=== PATIENT | male | born 1975 | race African-American/Black ===

== ENCOUNTER 2016-06-13 04:41 | Emergency (ER) | payer MEDICAID, OTHER ==
[~2016-06-13] VITALS: Ht 167.6 cm; Wt 77.1 kg
[~2016-06-13 04:41] MED LIST: AMLO5TAB2 PO; HYDR25TAB PO; LOVA40TA PO; OMEP40CA2 PO
[2016-06-13 04:49] VITALS: BP 169/109
--- NOTE | 2016-06-13 15:07 | REP ---
RIGHT FOOT, FOUR VIEWS: HISTORY: Trauma. There is no acute fracture or dislocation. The joint spaces are normal in appearance. IMPRESSION: There is no acute fracture or dislocation. Signed by Rahul Adams MD 06/13/2016 08:50 A
== END 2016-06-13 05:27 | disposition home or self-care (01) ==
LOC: M ED 05:26
DX: S99.921A Unspecified injury of right foot, initial encounter (principal); W22.8XXA Striking against or struck by other objects, initial encounter; Y92.019 Unspecified place in single-family (private) house as the place of occurrence of the external cause; Y93.89 Activity, other specified; Y99.8 Other external cause status; K21.9 Gastro-esophageal reflux disease without esophagitis; F41.9 Anxiety disorder, unspecified; Z79.899 Other long term (current) drug therapy; Z72.0 Tobacco use; R51 Headache; E78.00 Pure hypercholesterolemia, unspecified; I10 Essential (primary) hypertension; F32.9 Major depressive disorder, single episode, unspecified

== ENCOUNTER 2016-07-22 08:57 | Emergency (ER) | payer MEDICAID, OTHER ==
[~2016-07-22] VITALS: Ht 167.6 cm; Wt 77.1 kg
[2016-07-22] MEDS ORDERED: METO1TAB7 (09:08)
[2016-07-22] MEDS ORDERED: PRED20TA PO (10:06)
--- NOTE | 2016-07-22 10:07 | REP ---
LEFT KNEE SERIES: Five views. HISTORY: Left knee pain. FINDINGS: Five views of the left knee demonstrate inferior pole patellar spurring at the patellar tendon insertion. There is fragmented old spurring at the distal patellar insertion at the anterior tibial apophysis consistent with old [place]-Schlatter disease. Bones, joints, and soft tissues are otherwise unremarkable. IMPRESSION: Findings consistent with chronic patellar tendonitis/old [place]-Schlatter disease. No acute bony abnormality. Signed by Han Lara MD 07/22/2016 01:32 P
[2016-07-22 10:20] VITALS: BP 136/78
== END 2016-07-22 10:36 | disposition home or self-care (01) ==
LOC: M ED 09:22
DX: M76.52 Patellar tendinitis, left knee (principal); I10 Essential (primary) hypertension; F41.9 Anxiety disorder, unspecified; F32.9 Major depressive disorder, single episode, unspecified; Z79.899 Other long term (current) drug therapy

== ENCOUNTER 2016-10-08 22:57 | Emergency (ER) | payer OTHER ==
[~2016-10-08] VITALS: Ht 167.6 cm; Wt 77.3 kg
[~2016-10-08 22:57] MED LIST changes: +METO1TAB7; +PRED20TA PO
[2016-10-09] MEDS ORDERED: PERCOCET 5MG/325MG TAB PO ONE (01:15)
[2016-10-09] MEDS ORDERED: NORCOTAB PO (02:07)
[2016-10-09 02:54] VITALS: BP 138/64
--- NOTE | 2016-10-09 10:51 | REP ---
Bilateral shoulder series: Six views. History: Lifting injury. Findings: Three views of the left shoulder demonstrate glenohumeral and acromioclavicular joint osteoarthritis with spurring. No evidence of fracture or subluxation is seen. Three views of the right shoulder also show acromioclavicular and glenohumeral joint osteoarthritic spurring. No fracture or subluxation is seen. Impression: Bilateral shoulder osteoarthritis affecting both the acromioclavicular and glenohumeral joints. No acute bony abnormality. Signed by Han Lara MD 10/09/2016 08:35 A
== END 2016-10-09 03:04 | disposition home or self-care (01) ==
LOC: M ED 22:57
DX: S46.111A Strain of muscle, fascia and tendon of long head of biceps, right arm, initial encounter (principal); X50.0XXA Overexertion from strenuous movement or load, initial encounter; Y92.9 Unspecified place or not applicable; Y93.89 Activity, other specified; Y99.9 Unspecified external cause status; K21.9 Gastro-esophageal reflux disease without esophagitis; I10 Essential (primary) hypertension; M19.011 Primary osteoarthritis, right shoulder; M19.012 Primary osteoarthritis, left shoulder; Z79.899 Other long term (current) drug therapy

== ENCOUNTER → 2017-01-06 | Outpatient (REF) | payer OTHER ==
[~2017-01-06] MED LIST changes: +NORCOTAB PO
== END ==
LOC: M LAB REF 20:50
PROVIDERS: ATTEND Physician Assistant
DX: J02.9 Acute pharyngitis, unspecified (principal)

== ENCOUNTER → 2017-02-25 | Outpatient (REF) | payer OTHER ==
[2017-02-25 16:00] LABS: ALBUMIN 4.7 GM/DL (3.2-5.2); ALBUMIN/GLOBULIN RATIO 1.42 (1.00-1.93); ALKALINE PHOSPHATASE 76 U/L (45-117); ALT/SGPT 61 U/L (12-78); ANION GAP 6 MEQ/L (8-16); AST/SGOT 40 U/L (7-37); BILIRUBIN,TOTAL 0.4 MG/DL (0.2-1.0); BLOOD UREA NITROGEN 22 MG/DL (7-18); CALCIUM LEVEL 9.1 MG/DL (8.5-10.1); CARBON DIOXIDE LEVEL 30 MEQ/L (21-32); CHLORIDE LEVEL 102 MEQ/L (98-107); CHOLESTEROL LEVEL 204 MG/DL (<200); CHOLESTEROL RISK RATIO 3.642 (<5); CREATININE FOR GFR 1.03 MG/DL (0.70-1.30); GLOMERULAR FILTRATION RATE > 60.0 (>60); GLUCOSE, FASTING 103 MG/DL (70-105); HDL CHOLESTEROL 56 MG/DL (>40); LDL CHOLESTEROL 125.6 MG/DL (<100); NON-HDL-C 148 MG/DL; POTASSIUM SERUM 4.1 MEQ/L (3.5-5.1); SODIUM LEVEL 138 MEQ/L (136-145); TRIGLYCERIDES LEVEL 112 MG/DL (<150)
[2017-02-25 16:25] LABS: ESTIMATED AVERAGE GLUCOSE 128 MG/DL (60-110); HEMOGLOBIN A1c 6.1 %
== END ==
LOC: M LAB REF 15:23
DX: I10 Essential (primary) hypertension (principal)

== ENCOUNTER → 2017-07-01 | Outpatient (REF) | payer OTHER | LOC: M LAB REF 09:44 | DX: J02.0 Streptococcal pharyngitis (principal) | CPT/HCPCS: 87070 ==

== ENCOUNTER → 2017-12-03 | Outpatient (REF) | payer OTHER ==
[2017-12-03 14:48] LABS: CHLAMYDIA DNA AMPLIFICATION NEGATIVE (NEGATIVE); GC DNA AMPLIFICATION NEGATIVE (NEGATIVE)
== END ==
LOC: M LAB REF 12:52
DX: Z11.59 Encounter for screening for other viral diseases (principal)
CPT/HCPCS: 87591

== ENCOUNTER → 2017-12-21 | Outpatient (REF) | payer OTHER ==
[2017-12-21 12:46] LABS: ALBUMIN 4.2 GM/DL (3.2-5.2); ALBUMIN/GLOBULIN RATIO 1.14 (1.00-1.93); ALKALINE PHOSPHATASE 76 U/L (45-117); ALT/SGPT 66 U/L (12-78); ANION GAP 11 MEQ/L (8-16); AST/SGOT 53 U/L (7-37); BILIRUBIN,TOTAL 0.3 MG/DL (0.2-1.0); BLOOD UREA NITROGEN 21 MG/DL (7-18); CALCIUM LEVEL 9.1 MG/DL (8.5-10.1); CARBON DIOXIDE LEVEL 25 MEQ/L (21-32); CHLORIDE LEVEL 103 MEQ/L (98-107); CHOLESTEROL LEVEL 251 MG/DL (<200); CHOLESTEROL RISK RATIO 4.826 (<5); CREATININE FOR GFR 0.98 MG/DL (0.70-1.30); GLOMERULAR FILTRATION RATE > 60.0 (>60); GLUCOSE, FASTING 95 MG/DL (70-100); HDL CHOLESTEROL 52 MG/DL (>40); LDL CHOLESTEROL 175 MG/DL (<100); NON-HDL-C 199 MG/DL; POTASSIUM SERUM 3.9 MEQ/L (3.5-5.1); SODIUM LEVEL 139 MEQ/L (136-145); TOTAL PROTEIN 7.9 GM/DL (6.4-8.2); TRIGLYCERIDES LEVEL 122 MG/DL (<150)
== END ==
LOC: M LAB REF 10:40
DX: I10 Essential (primary) hypertension (principal)

== ENCOUNTER → 2017-12-22 | Outpatient (REF) | payer OTHER ==
[2017-12-22 13:34] LABS: ESTIMATED AVERAGE GLUCOSE 126 MG/DL (60-110)
== END ==
LOC: M LAB REF 12:19
DX: I10 Essential (primary) hypertension (principal)
CPT/HCPCS: 83036

== ENCOUNTER → 2018-08-12 | Outpatient (REF) | payer OTHER, MEDICAID ==
[~2018-08-12] MED LIST changes: -AMLO5TAB2 PO; +AMLO5TAB6 PO; +HYDR-2541 PO; +HYDR-3715 PO; -HYDR25TAB PO; -NORCOTAB PO
[2018-08-12 17:58] LABS: ALBUMIN 4.2 GM/DL (3.2-5.2); ALT/SGPT 50 U/L (12-78); BILIRUBIN,TOTAL 0.3 MG/DL (0.2-1.0); BLOOD UREA NITROGEN 18 MG/DL (7-18); CARBON DIOXIDE LEVEL 29 MEQ/L (21-32); CHLORIDE LEVEL 107 MEQ/L (98-107); CHOLESTEROL LEVEL 176 MG/DL (<200); CHOLESTEROL RISK RATIO 3.911 (<5); GLOMERULAR FILTRATION RATE > 60.0 (>60); GLUCOSE, FASTING 94 MG/DL (70-100); HDL CHOLESTEROL 45 MG/DL (>40); LDL CHOLESTEROL 97 MG/DL (<100); NON-HDL-C 131 MG/DL; POTASSIUM SERUM 3.4 MEQ/L (3.5-5.1); SODIUM LEVEL 141 MEQ/L (136-145); TOTAL PROTEIN 7.4 GM/DL (6.4-8.2); TRIGLYCERIDES LEVEL 168 MG/DL (<150)
[2018-08-12 18:14] LABS: HEMOGLOBIN A1c 6.4 %
== END ==
LOC: M LAB REF 16:45
PROVIDERS: ATTEND Nurse Practitioner Adult Health
DX: I10 Essential (primary) hypertension (principal); R73.03 Prediabetes

== ENCOUNTER 2018-12-12 20:58 | Emergency (ER) | payer MEDICAID, OTHER ==
[~2018-12-12] VITALS: Ht 167.6 cm; Wt 75.0 kg
[~2018-12-12 20:58] MED LIST changes: -OMEP40CA2 PO; +OMEP40CA97 PO
[2018-12-13] MEDS ORDERED: ACETAMINOPHEN 325 MG TAB PO ONE (00:30)
[2018-12-13 01:48] VITALS: BP 132/82
--- NOTE | 2018-12-13 07:53 | REP ---
Clinical: Trauma. Fall. Technique: Internal rotation, external rotation, and Y view of the right shoulder. Findings: Cortical irregularity and spurring at the acromioclavicular joint and glenohumeral joint consistent with arthritic changes. No acute fracture or dislocation. Subacromial space is normal. Surrounding soft tissues are normal. Impression: Chronic arthritic changes. No acute fracture or dislocation. Electronically Signed by Aditya Paniagua MD 12/13/2018 07:44 A
--- NOTE | 2018-12-13 07:57 | REP ---
Clinical: Trauma. Fall. . Technique: AP, lateral, bilateral oblique views of the right elbow. Findings: While no acute fracture is identified, lateral view suggests elevation to the anterior fat pad suggesting the possibility of occult injury. Presumptive treatment and clinical correlation is recommended. Impression: Lateral view suggests hemarthrosis and possible occult injury. Presumptive treatment and clinical correlation is recommended. Electronically Signed by Aditya Paniagua MD 12/13/2018 07:48 A
--- NOTE | 2018-12-14 16:24 | ED PDOC ---
Post-Departure Follow-Up derek mcclendon and dr juarez faxed formal report of right elbow film for fu Dominga Rodriguez MD Dec 14, 2018 16:24
== END 2018-12-13 01:50 | disposition home or self-care (01) ==
LOC: M ED 20:58
DX: M25.511 Pain in right shoulder (principal); M25.521 Pain in right elbow; I10 Essential (primary) hypertension; E78.5 Hyperlipidemia, unspecified; K21.9 Gastro-esophageal reflux disease without esophagitis

== ENCOUNTER → 2019-01-19 | Outpatient (REF) | payer OTHER, MEDICAID ==
[2019-01-19 14:26] LABS: ALBUMIN 4.3 GM/DL (3.2-5.2); ALT/SGPT 49 U/L (12-78); BILIRUBIN,TOTAL 0.3 MG/DL (0.2-1.0); BLOOD UREA NITROGEN 24 MG/DL (7-18); CALCIUM LEVEL 9.3 MG/DL (8.5-10.1); CARBON DIOXIDE LEVEL 30 MEQ/L (21-32); CHLORIDE LEVEL 100 MEQ/L (98-107); CHOLESTEROL LEVEL 272 MG/DL (<200); CHOLESTEROL RISK RATIO 4.387 (<5); CREATININE FOR GFR 0.97 MG/DL (0.70-1.30); GLOMERULAR FILTRATION RATE > 60.0 (>60); GLUCOSE, FASTING 100 MG/DL (70-100); HDL CHOLESTEROL 62 MG/DL (>40); LDL CHOLESTEROL 186 MG/DL (<100); NON-HDL-C 210 MG/DL; SODIUM LEVEL 137 MEQ/L (136-145); TRIGLYCERIDES LEVEL 120 MG/DL (<150)
[2019-01-19 14:42] LABS: HEMOGLOBIN A1c 6.1 %
== END ==
LOC: M LAB REF 14:01
PROVIDERS: ATTEND Nurse Practitioner Adult Health
DX: R73.03 Prediabetes (principal); I10 Essential (primary) hypertension

== ENCOUNTER 2019-10-02 04:45 | Emergency (ER) | payer OTHER, MEDICAID ==
[~2019-10-02 04:45] MED LIST changes: +AMLO1TAB24 PO; -AMLO5TAB6 PO
[2019-11-16 11:50] LABS: BASO % 0.3 % (0.0-1.0); EOS # 0.1 10^3/uL (0.0-0.5); HEMATOCRIT 40.2 % (42.0-52.0); HEMOGLOBIN 13.9 g/dl (13.5-17.5); LYMPH # 2.5 10^3/uL (1.5-5.0); LYMPH % 37.5 % (24.0-44.0); MEAN CORPUSCULAR HEMOGLOBIN 31.7 pg (27.0-33.0); MEAN CORPUSCULAR HGB CONC 34.6 g/dl (32.0-36.5); MEAN CORPUSCULAR VOLUME 91.8 fl (80.0-96.0); MONO # 0.6 10^3/uL (0.0-0.8); MONO % 8.8 % (0.0-5.0); NEUTROPHILS # 3.4 10^3/uL (1.5-8.5); NEUTROPHILS % 51.2 % (36.0-66.0); PLATELET COUNT, AUTOMATED 222 10^3/uL (150-450); RED BLOOD COUNT 4.38 10^6/uL (4.30-6.10); WHITE BLOOD COUNT 6.6 10^3/uL (4.0-10.0)
[2019-12-24 16:16] LABS: AMPHETAMINES LEVEL URINE NEGATIVE (NEGATIVE); BARBITURATES URINE NEGATIVE (NEGATIVE); BENZODIAZEPINES URINE NEGATIVE (NEGATIVE); CANNABINOIDS URINE POSITIVE (NEGATIVE); COCAINE METABOLITE URINE NEGATIVE (NEGATIVE); METHADONE URINE NEGATIVE (NEGATIVE); OPIATES URINE NEGATIVE (NEGATIVE); PHENCYCLIDINE URINE NEGATIVE (NEGATIVE)
[2019-12-24 16:16] LABS: ACETAMINOPHEN LEVEL < 2.0 UG/ML (10.0-30.0); ALBUMIN 4.4 GM/DL (3.2-5.2); ALT/SGPT 89 U/L (12-78); BILIRUBIN,DIRECT 0.1 MG/DL (0.0-0.2); BILIRUBIN,TOTAL 0.2 MG/DL (0.2-1.0); BLOOD UREA NITROGEN 15 MG/DL (7-18); CALCIUM LEVEL 8.9 MG/DL (8.5-10.1); CARBON DIOXIDE LEVEL 24 MEQ/L (21-32); CHLORIDE LEVEL 105 MEQ/L (98-107); CREATININE FOR GFR 1.18 MG/DL (0.70-1.30); ETHYL ALCOHOL (ETHANOL) 0.107 % (0.000-0.010); GLOMERULAR FILTRATION RATE > 60.0 (>60); GLUCOSE, FASTING 122 MG/DL (70-100); POTASSIUM SERUM 3.6 MEQ/L (3.5-5.1); SALICYLATE LEVEL < 1.7 MG/DL (5.0-30.0); SODIUM LEVEL 137 MEQ/L (136-145); THYROID STIMULATING HORMONE 0.745 uIU/ML (0.358-3.740); TOTAL PROTEIN 7.9 GM/DL (6.4-8.2)
== END 2019-10-02 06:30 | disposition home or self-care (01) ==
LOC: M ED 04:45
DX: F39 Unspecified mood [affective] disorder (principal); Z63.0 Problems in relationship with spouse or partner; F32.9 Major depressive disorder, single episode, unspecified
CPT/HCPCS: 80048; 80076; 80307; 84443; 85025; 99285; G0480

== ENCOUNTER 2019-11-20 07:17 | Emergency (ER) | payer OTHER ==
[~2019-11-20] VITALS: Ht 167.6 cm; Wt 71.6 kg
[2019-11-20] MEDS ORDERED: AMLO1TAB25 (07:26)
[2019-11-20] MEDS ORDERED: LISI10TA4 (07:26)
[2019-11-20] MEDS ORDERED: OMEP-221 (07:26)
[2019-11-20] MEDS ORDERED: HYDR25TAB (07:26)
[2019-11-20] MEDS ORDERED: AMOX875T2 (07:26)
[2019-11-20] MEDS ORDERED: LOVA20TA2 (07:26)
[2019-11-20] MEDS ORDERED: DOXY-350 PO (07:58)
[2019-11-20] MEDS ORDERED: KETOROLAC 60MG 2ML VIAL IM ONE (08:00)
[2019-11-20 08:18] VITALS: BP 132/87
== END 2019-11-20 08:18 | disposition home or self-care (01) ==
LOC: M ED 07:17
DX: J32.9 Chronic sinusitis, unspecified (principal); E11.9 Type 2 diabetes mellitus without complications; I10 Essential (primary) hypertension; E78.5 Hyperlipidemia, unspecified; Z79.899 Other long term (current) drug therapy
CPT/HCPCS: 96372; 99283; J1885

== ENCOUNTER 2019-12-07 04:37 | Emergency (ER) | payer OTHER ==
[~2019-12-07] VITALS: Ht 167.6 cm; Wt 71.8 kg
[~2019-12-07 04:37] MED LIST changes: +AMLO1TAB25; +AMOX875T2; +DOXY-350 PO; +HYDR25TAB; +LISI10TA4; +LOVA20TA2; +OMEP-221
[2019-12-07] MEDS ORDERED: MELO15TA28 (04:49)
[2019-12-07] MEDS ORDERED: KETOROLAC TROMETHAMINE 10 MG TAB PO ONE (06:30)
--- NOTE | 2019-12-07 07:47 | REPVR ---
PROCEDURE INFORMATION: Exam: US Duplex Left Upper Extremity Veins, Limited Exam date and time: 12/07/2019 7:27 AM Age: 44 years old Clinical indication: Pain; Swelling (edema) of limb; Upper extremity, left; Arm, upper; Additional info: Pain/swelling, HX rotator cuff tear S/P steroid injections 1 month ago TECHNIQUE: Imaging protocol: Real-time Duplex ultrasound of the Left Upper Extremity with 2-D salazar scale, color Doppler flow and spectral waveform analysis with image documentation. Limited exam focused on the left upper extremity veins. COMPARISON: No relevant prior studies available. FINDINGS: Left deep veins: Unremarkable. Axillary and brachial veins are patent throughout without thrombus. Normal Doppler waveforms. Normal compressibility and/or augmentation response. Visualized internal jugular and subclavian veins are patent. Left superficial veins: Visualized cephalic and basilic veins are patent without definite thrombus, but they are small in caliber. The cephalic vein is compressible but no definite blood flow is seen within the cephalic vein on color Doppler imaging. Soft tissues: There is a complex heterogeneous echogenicity collection in the left upper arm at the area of lump, which appears to surround the biceps tendon in the tendon sheath. This measures approximately 3.5 cm transverse and 5.2 cm AP dimension. IMPRESSION: 1. No evidence of deep vein thrombosis. 2. Complex fluid collection in the mid to upper left arm in the region of the biceps muscle and tendon, probably representing fluid in hematoma associated with an injury the biceps tendon. Further assessment with MRI may be helpful. Electronically signed by: Rebecca Yang On 12/07/2019 07:47:15 AM
[2019-12-07 08:19] VITALS: BP 120/77
--- NOTE | 2019-12-09 11:58 | ED PDOC ---
Post-Departure Follow-Up sarah mcclendon and dr nguyen faxed formal report of [facility] for fu Dominga Rodriguez MD Dec 09, 2019 11:58
== END 2019-12-07 08:20 | disposition home or self-care (01) ==
LOC: M ED 04:37
DX: S46.212A Strain of muscle, fascia and tendon of other parts of biceps, left arm, initial encounter (principal); X58.XXXA Exposure to other specified factors, initial encounter; Y92.9 Unspecified place or not applicable; Y99.9 Unspecified external cause status; Y93.9 Activity, unspecified; I10 Essential (primary) hypertension; E78.5 Hyperlipidemia, unspecified; R51.9 Headache, unspecified; F17.200 Nicotine dependence, unspecified, uncomplicated

== ENCOUNTER → 2019-12-13 | Outpatient (REF) | payer OTHER ==
[~2019-12-13] MED LIST changes: +MELO15TA28
[2019-12-13 18:40] LABS: ALBUMIN 4.4 GM/DL (3.2-5.2); ALT/SGPT 40 U/L (12-78); BILIRUBIN,TOTAL 0.4 MG/DL (0.2-1.0); BLOOD UREA NITROGEN 17 MG/DL (7-18); CALCIUM LEVEL 9.7 MG/DL (8.5-10.1); CARBON DIOXIDE LEVEL 26 MEQ/L (21-32); CHLORIDE LEVEL 102 MEQ/L (98-107); CREATININE FOR GFR 0.81 MG/DL (0.70-1.30); GLOMERULAR FILTRATION RATE > 60.0 (>60); GLUCOSE, FASTING 80 MG/DL (70-100); POTASSIUM SERUM 4.2 MEQ/L (3.5-5.1); SODIUM LEVEL 137 MEQ/L (136-145)
== END ==
LOC: M LAB REF 17:31
PROVIDERS: ATTEND Nurse Practitioner Adult Health
DX: I10 Essential (primary) hypertension (principal)

== ENCOUNTER 2020-03-07 08:00 | Emergency (ER) | payer OTHER ==
[~2020-03-07] VITALS: Ht 167.6 cm; Wt 89.0 kg
[~2020-03-07 08:00] MED LIST changes: +HYDR-3490; -HYDR25TAB; +LISI10TA22; -LISI10TA4
--- OUTSIDE RECORDS SUMMARY | 2020-03-07 08:08 | CCD ---
Author Organization Unknown Address [address] [place] [address] Phone [phone] Care Team Providers Care Machine Designer Name Role Phone Elaine Espinal Unavailable Unavailable Allergies Code Code System Name Reaction Severity Status Onset NKDA Notes: SHELLFISH - Reaction: throat swe lls up, itchy, hives | BANANAS - Reaction: shortness of breath Medications Name Status Start Date Stop Date albuterol sulfate HFA 90 mcg/actuation aerosol inhaler Completed 12/13/2019 amlodipine 10 mg tablet Take 1 tablet every day by oral route. Active Not available amoxicillin 875 mg-potassium clavulanate 125 mg tablet Completed 12/13/2019 azithromycin 250 mg tablet Completed 12/12 azithromycin 500 mg tablet Completed 12/12 benzonatate 200 mg capsule Completed 12/12 cefuroxime axetil 500 mg tablet Completed 12/13/2019 cetirizine 10 mg tablet Active Not avai lable doxycycline monohydrate 100 mg capsule Completed 12/13/2019 hydrochlorothiazide 25 mg tablet Take 1 tablet every day by oral route. Active Not available ketotifen 0.025 % (0.035 %) eye drops Active Not available lisinopril 10 mg tablet Take 1 tablet every day by oral route. Active Not available lovastatin 20 mg tablet Take 1 tablet every day by oral route at bedtime. Active Not available meloxicam 15 mg tablet Completed 0 naproxen 500 mg tablet Take 1 tablet twice a day by oral route as needed. Active Not available omeprazole 40 mg capsule,delayed release Active Not available Systane (propylene glycol) 0.4 %-0.3 % eye drops Active Not available Problems Name Status Onset Date Source Nicotine Dependence Active 07/05/2014 History Median Nerve Compression in Forearm Active 07/05/[address] Concept Unknown 07/05/2014 History Onychomycosis Active 11/22/2014 History Pharyngeal Finding Unknown 11/22/2014 History Disorder of Penis Active 04/12/2015 History Pain in Left Knee Active 05/28/2016 History Overweight Active 01/19/2017 History Body Mass Index 25-29 - Overweight Active 01/19/2017 History Prediabetes Active 03/15/2017 History Tobacco User Active 09/27/2017 History Hyperlipidemia Active 08/10/2018 History 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 Past Encounters 12/13/2019 Bilateral Shoulder Joint Pain; Hypertensive Disorder; Hyperlipidemia; Prediabetes; Tobacco User Elaine Espinal, ANP-BC: [address] [place] [address], Ph. Social History Tobacco Smoking Status Current Every Day Smoker Vaccine List None recorded. Plan of Care Patient Instructions Please follow up with orthopedics for yo ur shoulder pain, I will refill the medicine for you one time, but they will need to follow up with you. I have sent refills of your medications to your pharmacy. Please call with any questions or concerns. You have had blood work done today, we will call you with any abnormal results. Reminders Provider Appointments None recorded. Lab None recorded. Referral None recorded. Procedures None recorded. Surgeries None recorded. Imaging None recorded. Vitals 12/13/2019 12:00PM ESTABLISHED [id number] Height Weight BMI Blood Pressure 65 in 189 lbs 31.5 kg/m2 108/76 mm[Hg] 03/03/2019 Height Weight Blood Pressure 65 in 161 lbs 146/93 mm[Hg] 11/14/2018 Height Weight Blood Pressure 65 in 163 lbs 153/89 mm[Hg] 08/10/2018 Height Weight Blood Pressure 65 in 174 lbs 141/86 mm[Hg]"
--- OUTSIDE RECORDS SUMMARY | 2020-03-07 08:09 | CCD ---
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 [id number] S [id number] Problems, Conditions, and Diagnoses Code Display Name Description Problem Type Effective Dates Data Source(s) 386604410 Gastroesophageal reflux disease Gastroesophageal Reflux Disease Problem 11/30/2019 04:21:41 PM EDT [place]ATHY ([facility]) 24696611 Hypertensive disorder Hypertensive Disorder Problem 11/30/2019 04:21:41 PM EDT KATHY ([facility]) 39752281 Depressive disorder Depressive Disorder Problem 1 04:21:41 PM EDT KATHY ([facility]) 63178061 Anxiety Anxiety Problem 11/30/2019 04:21:41 PM ED T KATHY ([facility]) 521.00 Dental caries Dental caries 01/20/2019 09:35:52 AM EST [facility] 735862900 Dental arch length loss secondary to den kaylie caries Dental Arch Length Loss Secondary to Dental Caries Problem 01/20/2019 12:00:00 AM EST Wayne TADEO ([facility]) [id number] Pharyngeal finding Pharyngeal Finding Problem 09/2014 12:00:00 AM EDT - 12/13/2019 12:00:00 AM EDT KATHY ([facility]) 984479355 SNOMED CT Concept SNOMED CT Concept Problem 07/05 12:00:00 AM EDT - 12/13/2019 12:00:00 AM EDT KATHY ([facility]) Surgeries/Procedures Procedure Description Date Indications Data Source(s) ARTHROCENTESIS ASPIR&/INJECTION MAJOR JT/BURSA 020 12:00:00 AM EDT [place] ([facility]) Results ID Date Data Source [id number] 12/13/2019 10:16:10 AM EDT [facility] Current Problems: Dental caries (ICD-521 .00) (NMZ55-E15.9)Hyperlipidemia (ICD- 272.4) (SRC04-B13.5)Tobacco use (ICD-305.1) (JIK85-G24.0)Prediabetes (ICD10- R73.03)History of alcohol abuse (ICD-V11.3) (SDV48-I84.21)BMI 29.0-29.9 (ICD- V85.25) (DGC39-D46.29)Overweight (ICD-278.02) (XGD01-M04.3)Pain in left knee (ICD-719.46) (ASH47-B62.562)Penile pain (ICD-607.89) (RCM39-Q28.89)Onychomycosis (ICD-110.1) (VNQ14-E17.1)PHARYNGITIS (ICD-462) (XZY38-Q43.9)Carpal tunnel syndrome (ICD-354.0) (LHT84-J30.00)Tobacco use disorder (ICD-305.1) (ICD10- F17.200)Routine general medical examination (over 18) (ICD-V70.0) (ICD10- Z00.00)Hypertension (ICD-401.9) (DIQ12-S19)G E R D (ICD-530.81) (ICD10- K21.9)Depression (ICD-311) (FLU82-P07.9)Anxiety Disorder (ICD-300.00) (ICD10- F41.9)Problem list reviewed during this update.Current Medications: LOVASTATIN 20 MG ORAL TABLET (LOVASTATIN) 1 tab by mouth every dayLISINOPRIL 10 MG ORAL TABLET (LISINOPRIL) 1 tab by mouth every day; Route: ORALAMLODIPINE BESYLATE 10 MG ORAL TABLET (AMLODIPINE BESYLATE) 1 tab by mouth every day; Route: ORALOMEPRAZOLE 40 MG ORAL CAPSULE DELAYED RELEASE (OMEPRAZOLE) 1 capsule PO dailyHYDROCHLOROTHIAZIDE 25 MG ORAL TABLET (HYDROCHLOROTHIAZIDE) 1 tablet PO dailyMedication list reviewed during this update.Current Allergies: * BANANAS (Critical)* SHELLFISH (Critical)Allergy list reviewed during this update. Dental Chart: Procedures:Type - CDT Code - Description B - (D2391) Resin-based composite - one surface, posterior on Tooth # 2 on Tooth Surface M (Performed by Irma Wu DDS) Chart Notes:marija (Dec 13 2019 11:05AM): RM (-) per pt. Took temp@ F. Additional PPE requirements due to COVID-19 in the dental setting, N95, surgical mask, hair covering, gown CC: none. HurriCaine (Watermelon) Topical, UR infiltration 1carp. Septocaine (Articaine HCL 4%) X 1:200.000 epi. Operative: #2-M etched and rinsed, futurabond placed and light cured. Voco Grandioso composite A2. Excavated with High Speed and Slow Speed. Occlusion checked and polished. No complications. POI. Given. Assisted by AG . Pt was cooperative. NV:RecallIrma Wu DDS by marija (12/13/2019 11:05 AM): Tooth Notes and Watches:- Tooth 14 Note: open c ontact leading to food impaction. Dr. wu plans on replacing composite with Kristi Zhao by leanna (01/02/2019 10:25 AM): Assessment & Plan Medications:LOVASTATIN 20 MG ORAL TABLETLISINOPRIL 10 MG ORAL TABLETAMLODIPINE BESYLATE 10 MG ORAL TABLETOMEPRAZOLE 40 MG ORAL CAPSULE DELAYED RELEASEHYDROCHLOROTHIAZIDE 25 MG ORAL TABLETAllergies:* BANANAS (Critical)* SHELLFISH (Critical) Name Value Range Interpretation Code Description Data Roro rce(s) Supporting Document(s) ID Date Data Source [id number] 12/13/2019 09:08:51 AM EDT [facility] Patient History Medical History:Anxiety DisorderDepressionG E R DHypertensionTuberculosisADHDMigrainesFamily History:Son- ADDFH- DepressionSocial/Personal History: Smoking Status: current some day smoke rCurrent Problems: Dental caries (ICD-521.00) (YST15-M44.9)Hyperlipidemia (ICD- 272.4) (DWF04-H62.5)Tobacco use (ICD-305.1) (FBZ86-F31.0)Prediabetes (ICD10- R73.03)History of alcohol abuse (ICD-V11.3) (POO98-D56.21)BMI 29.0-29.9 (ICD- V85.25) (WUV02-N89.29)Overweight (ICD-278.02) (YVD03-W89.3)Pain in left knee (ICD-719.46) (TTC02-E97.562)Penile pain (ICD-607.89) (XKT04-A82.89)Onychomycosis (ICD-110.1) (MQZ64-V34.1)PHARYNGITIS (ICD-462) (QCH78-N61.9)Carpal tunnel syndrome (ICD-354.0) (VGS23-Q98.00)Tobacco use disorder (ICD-305.1) (ICD10- F17.200)Routine general medical examination (over 18) (ICD-V70.0) (ICD10- Z00.00)Hypertension (ICD-401.9) (ZMI31-R08)G E R D (ICD-530.81) (ICD10- K21.9)Depression (ICD-311) (AEV39-W62.9)Anxiety Disorder (ICD-300.00) (ICD10- F41.9)Current Medications: LOVASTATIN 20 MG ORAL TABLET (LOVASTATIN) 1 tab by mouth every dayLISINOPRIL 10 MG ORAL TABLET (LISINOPRIL) 1 tab by mouth every day; Route: ORALAMLODIPINE BESYLATE 10 MG ORAL TABLET (AMLODIPINE BESYLATE) 1 tab by mouth every day; Route: ORALOMEPRAZOLE 40 MG ORAL CAPSULE DELAYED RELEASE (OMEPRAZOLE) 1 capsule PO dailyHYDROCHLOROTHIAZIDE 25 MG ORAL TABLET (HYDROCHLOROTHIAZIDE) 1 tablet PO dailyCurrent Allergies: * BANANAS (Critical)* SHELLFISH (Critical)Past Medical History:(reviewed - no changes required) Anxiety DisorderDepressionG E R DHypertensionTuberculosisADHDMigraines Dental Chart: Procedures:Type - CDT Code - Description B - (D0274) Bitewings, 4 radiographic images (Performed by Kristi Cortez) B - (D0120) Periodic oral evaluation - established patient (Performed by Irma Wu DDS) B - (D1110) Prophylaxis, adult (Performed by Kristi Cortez) Treatments:Type - CDT Code - Description T - (D2391) Resin-based composite - one surface, posterior on Tooth # 2 on Tooth Surface M (Performed by Kristi Cortez) Chart Notes:leanna (Dec 13 2019 9:58AM): [facility]- no changescc-Food get stuck in my tooth on upper right sidePatient lost amalgam filling on mesial of # 2. Dr. Wu plans resin on # 2Additional PPE requirements due to COVID-19 in the dental setting, N95, surgical mask, hair covering, gown. Adult prophy - handscaled, polished with rotary cup, flossed 6LDP-tkgejRE-qxfwPukultv reported brushing twice/day, flossing regularly. Patient uses Listerine zero total careTrace marginal biofilm with trace marginal and interproximal calculus in sextant 5Used hand instrumentsTissues- mild bleeding on flossingOHI-brushing am pm, flossing and then using Act mouthwash mouthwashPatient was cooperativeNV- Kristi Wilson by leanna (12/13/2019 9:26 AM): ; marija (Dec 13 2019 11:06AM): [facility](-). CC: lost filling # 3- mesial. Reviewed Xrays. Exam: no caries detected. OCS: WNL, IO/ EO completed, No significant hard findings upon clinical exam.Additional PPE requirements due to COVID-19 in the dental setting, N95, surgical mask, hair covering, gown and shieldPt was cooperative. OHI given Referral: N/A NV:Kristi Kolb by marija (12/13/2019 11:06 AM): Tooth Notes and Watches:- Tooth 14 Note: open contact leading to food impaction. Dr. wu plans on replacing composite with amalgKristi Ruiz by leanna (01/02/2019 10:25 AM): Assessment & Plan Medications:LOVASTATIN 20 MG ORAL TABLETLISINOPRIL 10 MG ORAL TABLETAMLODIPINE BESYLATE 10 MG ORAL TABLETOMEPRAZOLE 40 MG ORAL CAPSULE DELAYED RELEASEHYDROCHLOROTHIAZIDE 25 MG ORAL TABLETAllergies:* BANANAS (Critical)* SHELLFISH (Critical) Name Value Range Interpretation Code Description Data Roro rce(s) Supporting Document(s) ID Date Data Source [id number] 11/07/2019 12:00:00 AM EDT [facility] Patient Name: CHANDA [id number] [facility] Date of : 1975[address] Date of Exam: 11/07/2019BEATRIZ Dick[place] [id number]#: Fax: [phone] EXAM: ARTHROCENTESIS LTSHOULDER-ASPIR/INJ STRD/PAIN MEDSLEFT SHOULDER INJECTION:The procedure was performed by ERNÉ Randall under the generalsupervision of Dr. Jovel.The benefits and risks including, but not limited to pain, infection,bleeding, and anaphylaxis were explained to the patient and informedconsent was obtained.The left glenohumeral joint space was localized using fluoroscopicguidance. The skin was prepped and draped in a sterile fashion. 1%Lidocaine was used as a local anesthetic. Using fluoroscopic guidance, a#25 gauge needle was inserted and advanced into the joint. 0.5 cc ofOmnipaque 300 was injected to verify placement. 6 cc of a solutioncontaining 5 cc of 1% Lidocaine and 1 cc of Kenalog 40 mg was injected intothe joint space. The needle was then removed.The patient tolerated the procedure well and there were no immediatecomplications.Fluoroscopy time was 4 seconds at 3 pulses/second. This is equal to 1seconds continuous fluoroscopy time which is a 75% reduction in radiation.JASMEET Arellano/Uriel bruno for referring KELLY MAE to our office.Electronically Signed - MYRNA JOVEL MD 11/13/19 8:55 Name Value Range Interpretation Code Description Data Roro rce(s) Supporting Document(s) ID Date Data Source [id number] 11/07/2019 12:00:00 AM EDT [facility] Imaging Casey KINNEY Patient Name: CHANDA [id number] [facility] of : 1975[address] Date of Exam: 11/07/2019[place]AT[place] Dick[place] [id number]#: Fax: [phone] EXAM: ARTHROCENTESIS LTSHOULDER-ASPIR/INJ STRD/PAIN MEDSLEFT SHOULDER INJECTION:The procedure was performed by RENÉ Randall under the generalsupervision of Dr. Jovel.The benefits and risks including, but not limited to pain, infection,bleeding, and anaphylaxis were explained to the patient and informedconsent was obtained.The left glenohumeral joint space was localized using fluoroscopicguidance. The skin was prepped and draped in a sterile fashion. 1%Lidocaine was used as a local anesthetic. Using fluoroscopic guidance, a#25 gauge needle was inserted and advanced into the joint. 0.5 cc ofOmnipaque 300 was injected to verify placement. 6 cc of a solutioncontaining 5 cc of 1% Lidocaine and 1 cc of Kenalog 40 mg was injected intothe joint space. The needle was then removed.The patient tolerated the procedure well and there were no immediatecomplications.Fluoroscopy time was 4 seconds at 3 pulses/second. This is equal to 1seconds continuous fluoroscopy time which is a 75% reduction in radiation.JASMEET Arellano/Uriel you for referring KELLY MAE to our office.Electronically Signed - MYRNA JOVEL MD 11/13/19 8:55 Name Value Range Interpretation Code Description Data Roro rce(s) Supporting Document(s) ID Date Data Source [id number] 11/07/2019 12:00:00 AM EDT [facility] Imaging Casey KINNEY Patient Name: [id number] [facility] Date of : 1975[address] Date of Exam: 11/07/2019BEATRIZ Dickerson [id number]#: Fax: [phone] EXAM: ARTHROCENTESIS RTSHLDR-ASPIR/INJ STEROID/PAIN MEDSRIGHT SHOULDER INJECTION:The procedure was performed by RENÉ Randall under the generalsupervision of Dr. Jovel.The benefits and risks including, but not limited to pain, infection,bleeding, and anaphylaxis were explained to the patient and informedconsent was obtained.The right glenohumeral joint space was localized using fluoroscopicguidance. The skin was prepped and draped in a sterile fashion. 1%Lidocaine was used as a local anesthetic. Using fluoroscopic guidance, a#25 gauge needle was inserted and advanced into the joint. 0.5 cc ofOmnipaque 300 was injected to verify placement. 6 cc of a solutioncontaining 5 cc of 1% Lidocaine and 1 cc of Kenalog 40 mg was injected intothe joint space. The needle was then removed.The patient tolerated the procedure well and there were no immediatecomplications.Fluoroscopy time was 4 seconds at 3 pulses/second. This is equal to 1seconds continuous fluoroscopy time which is a 75% reduction in radiation.JASMEET Arellano/Uriel you for referring KELLY MAE to our office.Electronically Signed - MYRNA JOVEL MD 11/13/19 8:55 Name Value Range Interpretation Code Description Data Roro rce(s) Supporting Document(s) ID Date Data Source [id number] 11/07/2019 12:00:00 AM EDT [facility] Casey KINNEY Patient Name: [id number] [facility] Date of : 1975[facility] [address] Date [facility]: [facility] [id number]#: Fax: [phone] EXAM: ARTHROCENTESIS RTSHLDR-ASPIR/INJ STEROID/PAIN MEDSRIGHT SHOULDER INJECTION:The procedure was performed by RENÉ Randall under the generalsupervision of Dr. Jovel.The benefits and risks including, but not limited to pain, infection,bleeding, and anaphylaxis were explained to the patient and informedconsent was obtained.The right glenohumeral joint space was localized using fluoroscopicguidance. The skin was prepped and draped in a sterile fashion. 1%Lidocaine was used as a local anesthetic. Using fluoroscopic guidance, a#25 gauge needle was inserted and advanced into the joint. 0.5 cc ofOmnipaque 300 was injected to verify placement. 6 cc of a solutioncontaining 5 cc of 1% Lidocaine and 1 cc of Kenalog 40 mg was injected intothe joint space. The needle was then removed.The patient tolerated the procedure well and there were no immediatecomplications.Fluoroscopy time was 4 seconds at 3 pulses/second. This is equal to 1seconds continuous fluoroscopy time which is a 75% reduction in radiation.JASMEET Arellano/Uriel you for referring KELLY MAE to our office.Electronically Signed - MYRNA JOVEL MD 11/13/19 8:55 Name Value Range Interpretation Code Description Data Roro rce(s) Supporting Document(s) ID Date Data Source [id number] 07/03/2019 12:00:00 AM EDT [facility] Imaging Casey KINNEY Patient Name: [id number] [facility] Date of : 1975[address] Date [facility] Exam: [facility]2019[facility] [id number]#: Fax: [phone] EXAM: ARTHROCENTESIS RTSHLDR-ASPIR/INJ STEROID/PAIN MEDSCLINICAL INFORMATION: Strain of muscle/tendon of the rotator cuff.The procedure was performed by Gabi Adame [facility], under thepersonal supervision of Dr. Ar oliveira.The benefits and risks including but not limited to pain, infection,bleeding and anaphylaxis were explained to the patient as well as thepotential therapeutic benefits of the procedure and the possibility of anunsuccessful procedure, and an informed consent was obtained. Directlyprior to the start of the procedure, a formal time-out was completed.The right glenohumeral joint space was localized using fluoroscopicguidance. The skin was prepped and draped in a sterile fashion.Approximately 5 cc of 1% Lidocaine 10 mg/ml was used as a local anesthetic. Using fluoroscopic guidance, a #22 gauge s emma needle was inserted andadvanced into the right glenohumeral joint space. Approximately 1 cc ofOmnipaque 300 mg/ml was injected to verify placement. A 6 cc solutioncontaining 5 cc of 1% Bickqgwij11 mg/ml and 1 cc of Kenalog 40 mg/ml wasinjected into the joint space. The needle was then removed.The patient tolerated the procedure well and there were no immediatecomplications.Fluoroscopic images are performed with last image hold technology. Theseimages require no additional radiation to acquire.Fluoroscopy time was 9 seconds at 3 pulses/second. This is equal to 2.25seconds continuous fluoroscopy time which is a 75% reduction in radiation.Dictated by RENÉ Choudhary, with Dr. Fenton.SHAHAB Varner/Uriel bruno for referring KELLY MAE to our office.Electronically Signed - FREEMAN FENTON DO 07/03/19 16:55 Name Value Range Interpretation Code Description Data Roro rce(s) Supporting Document(s) ID Date Data Source [id number] 07/03/2019 12:00:00 AM EDT [facility] Imaging Casey KINNEY Patient Name: [id number] [facility] Date of : 1975[facility] [address] Date of Exam: 07/03/2019[place], [place] [id number]#: Fax: [phone] EXAM: ARTHROCENTESIS RTSHLDR-ASPIR/INJ STEROID/PAIN MEDSCLINICAL INFORMATION: Strain of muscle/tendon of the rotator cuff.The procedure was performed by RENÉ Ridley, under thepersonal supervision of Dr. Ar oliveira.The benefits and risks including but not limited to pain, infection,bleeding and anaphylaxis were explained to the patient as well as thepotential therapeutic benefits of the procedure and the possibility of anunsuccessful procedure, and an informed consent was obtained. Directlyprior to the start of the procedure, a formal time-out was completed.The right glenohumeral joint space was localized using fluoroscopicguidance. The skin was prepped and draped in a sterile fashion.Approximately 5 cc of 1% Lidocaine 10 mg/ml was used as a local anesthetic. Using fluoroscopic guidance, a #22 gauge s emma needle was inserted andadvanced into the right glenohumeral joint space. Approximately 1 cc ofOmnipaque 300 mg/ml was injected to verify placement. A 6 cc solutioncontaining 5 cc of 1% Gkltrmlnu06 mg/ml and 1 cc of Kenalog 40 mg/ml wasinjected into the joint space. The needle was then removed.The patient tolerated the procedure well and there were no immediatecomplications.Fluoroscopic images are performed with last image hold technology. Theseimages require no additional radiation to acquire.Fluoroscopy time was 9 seconds at 3 pulses/second. This is equal to 2.25seconds continuous fluoroscopy time which is a 75% reduction in radiation.Dictated by Gabi Benson, [facility], with Dr. Fenton.SHAHAB Varner/Uriel you for referring KELLY MAE to our office.Electronically Signed - FREEMAN FENTON DO 07/03/19 16:55 Name Value Range Interpretation Code Description Data Roro e(s) Supporting Document(s) ID Date Data Source [id number] 03/03/2019 01:39:22 PM [facility] Measurements & CalculationsHeight: 65 inches (5 ft. 5 in.) 165.10 cm Weight: 161 pounds 73.18 kg Body Mass Index (BMI): 26.89BMI Interpretation: OverweightBody Surface Area (BSA): 1.81Weight Management Education Done (Nutrition/Physical Activity)Vital SignsTemperature: 98.5FPulse Rate: 91 beats/minuteRespiratory Rate: 17 respirations/minuteBlood Pressure: 146/93 O2 Saturation: 98% Vital Signs performed by: Su Nesbitt MA, March 03, 2019 1:46 PMInitial Intake Information from: patientRoom #: 12Infectious Disease- Travel Have you or your sexual partner travelled outside of the country recently? NoSmoking, Tobacco or Smoke Exposure StatusSmoke Status: current some day smokerTobacco Use: YesAdv to Quit: YesPassive Smoke Exposure: YesHealthcare HistorySince your last office visit...Have you been admitted to the hospital? NoHave you been to an emergency room (ER) or urgent care clinic? NoHave you seen another healthcare provider? NoHave you seen a dentist? Yes - NCFHCIntake performed by: Su Nesbitt MA, March 03, 2019 1:42 PMRate Your HealthIn general, would you say your health is? GoodPain AssessmentAre you currently having any pain which... You would like your provider to address? No Affects your activity level? NoDepression Screening - PHQ-2Over the last two weeks, have you... Had little interest or pleasure in doing things? Not at all Been feeling down, depressed, or hopeless? Not at all PHQ-2 Score: 0Anxiety Screening - ELIAN-2Over the last two weeks, have you been... Feeling nervous, anxious, or on edge? Not at all Unable to stop or control worrying? Not at all ELIAN-2 Score: 0Screening, Brief Intervention, & Referral to Treatment (SBIRT)Pre-Screening Questions How many times have you have 5 or more drinks in a day? 0How many times have you used an illegal drug or used a prescription medication for a non-medical reason? 0Performed by: Janette Ash MA 2019 1:42 PMPatient History Medical History:Anxiety DisorderDepressionG E R DHypertensionTuberculosisADHDMigrainesSurgical History:UnremarkableFamily History:Son- ADDFH- DepressionSocial/Personal History:Passive smoke exposure - yesAlcohol Use - yesDrug Use - noHIV/High Risk - noRegular Exercise - yesSmoking History:Patient currently smokes every day.Marital Status- Smoking Status: current some day smokerAdvised to Quit/Tobacco Education: YesChief ComplaintBP- LabsHistory of Present Illness (HPI)Telemedicine visit with patient's location at [facility] and provider's location at offsite office. Additional person(s)participating in the visit: n/a. Patient here today for 4 month follow up and med refills. He states that he has been compliant with his BP meds. He he hasn't taken his BP medication today. He also admits to smoking cigars a few days per week, he is not ready to quit. He has been exercising more lately. Has been missing his doses of his lovastatin, is now setting an alarm to take it the past month.HPI performed by: Elaine WHITE, March 03, 2019 1:47 PMTransitions of Care InboundProblem ReviewProblem List was reviewed and/or updated during this visit.Medication Reconciliation & ReviewMedication List was reviewed and/or updated during this visit, including review of any ixga-fzp-vowzocq medications, herbal therapies, and/or supplements.Allergy ReviewAllergy List was reviewed and/or updated during this visit.Adult Preventive CareProvider Calculated and Reviewed all Clinical Protocols for patient today. Screening Tobacco Screening: Smoking Status: current some day smoker (03/03/2019) Advised to Quit: Yes (03/03/2019)Labs/Meds/Other Counseling-Nutrition and Physical Activity:BMI Interpretation: Overweight (03/03/2019) Counseling: Done (03/03/2019) Physical Activity: Done (03/03/2019)Review of Systems General: Denies chills, fever, headache, feeling ill, sweats, night sweats. Cardiovascular: Denies chest pain, palpitations, feeling faint. Respiratory: Denies cough, difficulty breathing, shortness of breath, wheezing. Psychiatric: Denies depression, anxiety. Physical ExamGeneral Appearance: well nourished, well hydrated, no acute distressEyes, External: conjunctivae and lids normal, EOMIHearing: grossly intactRespiratory, Effort: no intercostal retractions or use of accessory musclesGait & Station: normalOrientation: oriented to time, place, and personMood & Affect: no depression, anxiety, or agitationJudgment & Insight: poorMemory: intact for recent and remote eventsCare Management Plan Transitions of CareInboundRate Your HealthIn general, would you say your health is? GoodAssessment & Plan Problems:Assessed:Tobacco use (ICD-305.1) (UCO41-Z16.0) Assessment: Instructions: There are many health risks that come with continued smoking. Please try to quit smoking KOKO and pick a quit date within the next 30 days. We can help you quit if you are ready.Hyperlipidemia (ICD- 272.4) (WMD69-X41.5) Assessment: Instructions: You can take the Lovastatin during the day if it helps your remember to take it. It's more important that you take it everyday than to try rememeber to take it at night.Hypertension ( ICD-401.9) (RRW58-A03) Assessment: Instructions: Your BP is too high today, go home and take your medications.You are at risk for strokes and heart attacks with uncontrolled high blood pressure. Please go to the ER or call 911 with any chest pain, severe headaches, vision changes, weakness, or shortness of breath.Prediabetes (WCY10-M59.03) Assessment: Instructions: Continue to cut our sugar and carbs from your diet to help ensure you don't develop diabetes.Hyperlipidemia (ICD-272.4) (TJP32-L17.5) Assessment: Was forgetting to take his med at night. Advised to take it during the day with his other meds. LDL increased this visit, will recheck in 3 months.Tobacco use (ICD-305.1) (ZGO96-I18.0) Assessment: Smoking cessation counseling done with patient today.Prediabetes (PTE22-N72.03) Assessment: Improved a1c, Advised patient on lifestyle changes, including a healthy diet and regular exercise. Patient understands and will start to make these changes. May consider starting medications if changes do not bring about improvements in lab values/blood pressure/weight.Hypertension (ICD-401.9) (KRJ72-D48) Assessment: Not at goal today, hasn't taken his meds today yet. Advised that he go home and taken them KOKO. Discussed s/sx of prolonged HTN and risks for CVA and DE. Advised patient to go to the ER or call 911 for any SAENZ, CP, vision changes, weakness, or SOB.Patient Instructions/Care Plan: Tobacco use: There are many health risks that come with continued smoking. Please try to quit smoking KOKO and pick a quit date within the next 30 days. We can help you quit if you are ready.Hyper lipidemia: You can take the Lovastatin during the day if it helps your remember to take it. It's more important that you take it everyday than to try rememeber to take it at night.Hypertension: Your BP is too high today, go home and take your medications.You are at risk for strokes and heart attacks with uncontrolled high blood pressure. Please go to the ER or call 911 with any chest pain, severe headaches, vision changes, weakness, or shortness of breath.Prediabetes: Continue to cut our sugar and carbs from your diet to help ensure you don't develop diabetes. Plan developed in collaboration with patient and/or familyMedications:LOVASTATIN 20 MG ORAL TABLETLISINOPRIL 10 MG ORAL TABLETAMLODIPINE BESYLATE 10 MG ORAL TABLETOMEPRAZOLE 40 MG ORAL CAPSULE DELAYED RELEASEHYDROCHLOROTHIAZIDE 25 MG ORAL TABLETMedication Changes:Refilled:LISINOPRIL 10 MG ORAL TABLET-1 tab by mouth every day Qty: 30[Tablet] Refills: 2 Method: ElectronicAMLODIPINE BESYLATE 10 MG ORAL TABLET-1 tab by mouth every day Qty: 30[Tablet] Refills: 2 Method: ElectronicOMEPRAZOLE 40 MG ORAL CAPSULE DELAYED RELEASE-1 capsule PO daily Qty: 30[Capsule] Refills: 2 Method: ElectronicLOVASTATIN 20 MG ORAL TABLET-1 tab by mouth every day Qty: 30[Tablet] Refills: 2 Method: ElectronicHYDROCHLOROTHIAZIDE 25 MG ORAL TABLET-1 tablet PO daily Qty: 30[Tablet] Refills: 2 Method: ElectronicChanged: To: LOVASTATIN 20 MG ORAL TABLET-1 tab by mouth every day Qty: 30[Tablet] Refills: 2Allergies:* BANANAS (Critical)* SHELLFISH (Critical)Orders:COMP METABOLIC PANEL [CPT-76156] HgBA1c [CPT-83625] LIPID PANEL [CPT-43828] Office Visit - Established, Level 3 [CPT- 73019AW] Follow-Up Return to clinic: 3 months for follow up Clinical Visit Summary CompletedMedications:HYDROCHLOROTHIAZIDE 25 MG ORAL TABLET (HYDROCHLOROTHIAZIDE) 1 tablet PO daily #30[Tablet] x 2 Entered and Authorized by: Elaine WHITE Method used: Electronically to [facility] (retail) [address] [place] [address] Indications: HYPERTENSION RxID: [id number] 20 MG ORAL TABLET (LOVASTATIN) 1 tab by mouth every day #30[Tablet] x 2 Entered and Authorized by: Elaine WHITE Method used: Electronically to [facility] (retail) [address] [place] [address] Note to Pharmacy: Route: ORAL; RxID: [id number] 40 MG ORAL CAPSULE DELAYED RELEASE (OMEPRAZOLE) 1 capsule PO daily #30[Capsule] x 2 Entered and Authorized by: Elaine WHITE Method used: Electronically to [facility] (retail) [address] [place] [address] Indications: G E R D RxID: [id number] BESYLATE 10 MG ORAL TABLET (AMLODIPINE BESYLATE) 1 tab by mouth every day #30[Tablet] x 2 Route:ORAL Entered and Authorized by: Elaine WHITE Method used: Electronically to [facility] (retail) [address] [place] [address] Note to Pharmacy: Route: ORAL; RxID: [id number] 10 MG ORAL TABLET (LISINOPRIL) 1 tab by mouth every day #30[Tablet] x 2 Route:ORAL Entered and Authorized by: Elaine WHITE Method used: Electronically to [facility] (retail) [address] [place] [address] Note to Pharmacy: Route: ORAL; RxID: [id number] Administered/Entered:Vaccination Group: H1N1 InfluenzaSeries: 1 NOT GIVENVaccination: Influenza A (H1N1) Monoval PF Intramuscular SuspensionReason Not Given: Patient decisionEntered Date: 03/03/2019 12:00 AMComments: pt refusedEntered by: Su Nesbitt MA Name Value Range Interpretation Code Description Data Roro rce(s) Supporting Document(s) ID Date Data Source [id number] 02/27/2019 09:01:53 AM [facility] Current Problems: Dental caries (ICD-521 .00) (VGM94-V71.9)Hyperlipidemia (ICD- 272.4) (SDS45-K71.5)Tobacco use (ICD-305.1) (ZVQ17-G91.0)Prediabetes (ICD10- R73.03)History of alcohol abuse (ICD-V11.3) (BLY62-X08.21)BMI 29.0-29.9 (ICD- V85.25) (TLC49-N29.29)Overweight (ICD-278.02) (LYH56-U93.3)Pain in left knee (ICD-719.46) (FXI13-X08.562)Penile pain (ICD-607.89) (OCS02-S44.89)Onychomycosis (ICD-110.1) (AVH74-N17.1)PHARYNGITIS (ICD-462) (NMB63-I08.9)Carpal tunnel syndrome (ICD-354.0) (PDF66-W47.00)Tobacco use disorder (ICD-305.1) (ICD10- F17.200)Routine general medical examination (over 18) (ICD-V70.0) (ICD10- Z00.00)Hypertension (ICD-401.9) (RWE92-N41)G E R D (ICD-530.81) (ICD10- K21.9)Depression (ICD-311) (CUP29-J13.9)Anxiety Disorder (ICD-300.00) (ICD10- F41.9)Current Medications: LOVASTATIN 20 MG ORAL TABLET (LOVASTATIN) 1 tabn by mouth every night at bedtime; Route: ORALLISINOPRIL 10 MG ORAL TABLET (LISINOPRIL) 1 tab by mouth every day; Route: ORALAMLODIPINE BESYLATE 10 MG ORAL TABLET (AMLODIPINE BESYLATE) 1 tab by mouth every day; Route: ORALOMEPRAZOLE 40 MG ORAL CAPSULE DELAYED RELEASE (OMEPRAZOLE) 1 capsule PO dailyHYDROCHLOROTHIAZIDE 25 MG ORAL TABLET (HYDROCHLOROTHIAZIDE) 1 tablet PO dailyCurrent Allergies: * BANANAS (Critical)* SHELLFISH (Critical) Dental Chart: Procedures:Type - CDT Code - Description B - (D2140) Amalgam-one surface, primary or permanent on Tooth # 2 on Tooth Surface M (Performed by Irma Wu DDS) Chart Notes:marija (Feb 27 2019 9:41AM): [facility] (N/C Per Pt.). CC: none. Hurricaine Watermelon Topical, UR Infiltration 1.5 carp Lidocaine HCL 2% with 1:100,000 epi. Operative: #2-M Gluma and Amalgam. Excavated with High Speed, Slow Speed and Spoon. Occlusion checked. No complications. POI given to pt. Assisted by CARLOS. Pt was cooperative. NV: Recall Irma Wu DDS by marija (02/27/2019 9:41 AM): Tooth Notes and Watches:- Tooth 14 Note: open contact leading to food impaction. Dr. wu plans on replacing composite with amalgKristi Ruiz by leanna (01/02/2019 10:25 AM): Assessment & Plan Medications:LOVASTATIN 20 MG ORAL TABLETLISINOPRIL 10 MG ORAL TABLETAMLODIPINE BESYLATE 10 MG ORAL TABLETOMEPRAZOLE 40 MG ORAL CAPSULE DELAYED RELEASEHYDROCHLOROTHIAZIDE 25 MG ORAL TABLETAllergies:* BANANAS (Critical)* SHELLFISH (Critical) Name Value Range Interpretation Code Description Data Roro rce(s) Supporting Document(s) ID Date Data Source [id number] 01/26/2019 12:00:00 AM EST [facility] Tam Azevedo Patient Name: CHANDA [id number] [facility] Date of : 1975[address] Date of Exam: 01/26/2019BEATRIZ Dikcerson [id number]#: Fax: [phone] EXAM: MRI SHOULDER WITH CONTRASTCLINICAL INFORMATION: Pain.Attempted pre and post contrast 3T MRI of the right shoulder was performedutilizing various sequences. Gadolinium utilized: 15 cc of ProHance. Theexamination was ordered with contrast only. The patient could not toleratethe exam and the exam is incomplete due to extreme claustrophobia. Onlythree axial data sets were obtained. Standard T1 and pre and postGadolinium enhanced fat suppressed T1.There is enhancement in the infraspinatus and teres minor musculatureparticularly the infraspinatus muscle and musculotendinous region. This isdifficult to evaluate due to the limitations of the exam. There is noevidence of a glenohumeral joint effusion. The biceps tendon resideswithin the bicipital groove. There are no enhancing marrow signalabnormalities.IMPRE SSION:There is evidence of rotator cuff musculotendinous edema and I cannot ruleout the possibility of an infraspinatus tendon tear.Exam limitations as described above. Complete examination is recommendedfor further evaluation.Accredited by the [employer] in [place].Freeman Fenton, SHAHAB/Uriel you for referring KELLY MAE to our office.Electronically Signed - FREEMAN FENTON DO 01/26/19 15:20 Name Value Range Interpretation Code Description Data Roro rce(s) Supporting Document(s) ID Date Data Source [id number] 01/20/2019 09:03:18 AM [facility] Current Problems: Dental caries (ICD-521 .00) (NZP93-R34.9)Hyperlipidemia (ICD- 272.4) (DUO55-G22.5)Tobacco use (ICD-305.1) (QPZ75-U43.0)Prediabetes (ICD10- R73.03)History of alcohol abuse (ICD-V11.3) (NFA01-A44.21)BMI 29.0-29.9 (ICD- V85.25) (PBZ12-E83.29)Overweight (ICD-278.02) (ITJ35-F31.3)Pain in left knee (ICD-719.46) (UKI12-H19.562)Penile pain (ICD-607.89) (ZWD58-J84.89)Onychomycosis (ICD-110.1) (PRZ62-J45.1)PHARYNGITIS (ICD-462) (UTQ95-E43.9)Carpal tunnel syndrome (ICD-354.0) (TNF22-I85.00)Tobacco use disorder (ICD-305.1) (ICD10- F17.200)Routine general medical examination (over 18) (ICD-V70.0) (ICD10- Z00.00)Hypertension (ICD-401.9) (UBK99-D00)G E R D (ICD-530.81) (ICD10- K21.9)Depression (ICD-311) (ZFN69-W54.9)Anxiety Disorder (ICD-300.00) (ICD10- F41.9)Current Medications: LOVASTATIN 20 MG ORAL TABLET (LOVASTATIN) 1 tabn by mouth every night at bedtime; Route: ORALLISINOPRIL 10 MG ORAL TABLET (LISINOPRIL) 1 tab by mouth every day; Route: ORALAMLODIPINE BESYLATE 10 MG ORAL TABLET (AMLODIPINE BESYLATE) 1 tab by mouth every day; Route: ORALOMEPRAZOLE 40 MG ORAL CAPSULE DELAYED RELEASE (OMEPRAZOLE) 1 capsule PO dailyHYDROCHLOROTHIAZIDE 25 MG ORAL TABLET (HYDROCHLOROTHIAZIDE) 1 tablet PO dailyCurrent Allergies: * BANANAS (Critical)* SHELLFISH (Critical) Dental Chart: Procedures:Type - CDT Code - Description B - (D2150) Amalgam, 2 surfaces, primary or permanent on Tooth # 14 on Tooth Surface MO (Performed by Irma Wu DDS) Chart Notes:marija (Jan 20 2019 9:35AM): [facility] (N/C Per Pt.) CC: none. HurriCaine (Watermelon) Topical, U Infiltration 1 1/2 carp. Septocaine (Articaine HCL 4%) X 1:200.000 epi. Operative: #14-MO Gluma and amalgam. Excavated with High Speed, Slow Speed and Spoon. Occlusion checked.No complications. POI given to pt. Assisted by CARLOS. Pt was cooperative. Pt. is aware we are replacing filling and not guarantee contact will improve. . NV: Irma Frias DDS by marija (01/20/2019 9:35 AM): Tooth Notes and Watches:- Tooth 14 Note: open contact leading to food impaction. Dr. wu plans on replacing composite with sharlenealgKristi Ruiz by leanna (01/02/2019 10:25 AM): Assessment & Plan Problems:Added: Dental caries (ICD-521.00) (ICD10- K02.9)Medications:LOVASTATIN 20 MG ORAL TABLETLISINOPRIL 10 MG ORAL TABLETAMLODIPINE BESYLATE 10 MG ORAL TABLETOMEPRAZOLE 40 MG ORAL CAPSULE DELAYED RELEASEHYDROCHLOROTHIAZIDE 25 MG ORAL TABLETAllergies:* BANANAS (Critical)* SHELLFISH (Critical) Name Value Range Interpretation Code Description Data Roro rce(s) Supporting Document(s) ID Date Data Source [id number] 01/19/2019 10:25:40 AM EST [facility] In-House Blood TestsDate/Time Colle cted: January 19, 2019 10:29 AMTest Result Reference Range Normal ValueComments: blood draw done in offcie done in the left ac tolerated well Cedrick Moreno PARSONS, January 19, 2019 10:29 AMAssessment & Plan Orders:[id number] Vst-Est Level I [CPT-17706] 11813 - Venipuncture [CPT-20898] Name Value Range Interpretation Code Description Data Roro rce(s) Supporting Document(s) ID Date Data Source [id number] 01/19/2019 09:55:00 AM [facility] Name Value Range Interpretation Code Description Data Roro rce(s) Supporting Document(s) HGBA1C 6.1 % N [facility] ID Date Data Source [id number] 01/19/2019 09:55:00 AM EST [facility] Name Value Range Interpretation Code Description Data Roro rce(s) Supporting Document(s) BG FASTING 100 mg/dL 70-100 [facility] Procedure Vital Signs ID Date Data Source UNK Name Value Range Interpretation Code Description Data Source(s) Body weight 3024 [oz_av] 3024 [oz_av] KATHY ([facility]) Systolic blood pressure 108 mm[Hg] 108 mm[Hg] A THENA ([facility]) Body mass index (BMI) [Ratio] 31.5 kg/m2 31.5 k g/m2 KATHY ([facility]) Body height 65 [in_i] 65 [in_i] KATHY ([facility]) Diastolic blood pressure 76 mm[Hg] 76 mm[Hg] KATHY ([facility]) Body mass index (BMI) [Ratio] 27.5 kg/m2 27.5 k g/m2 MEDENT ([facility]) Body weight 165.00 [lb_av] 165.00 [lb_av] MEDEN T ([facility]) Body height 65 [in_i] 65 [in_i] MEDENT ([facility] ) 5'5" Body temperature 98.7 [degF] 98.7 [degF] MEDENT ([facility] ) Body weight 2576 [oz_av] 2576 [oz_av] KATHY ([facility]) Systolic blood pressure 146 mm[Hg] 146 mm[Hg] Wayne THENWayne ([facility]) Body height 65 [in_i] 65 [in_i] KATHY ([facility]) Diastolic blood pressure 93 mm[Hg] 93 mm[Hg] KATHY ([facility]) Patient Treatment Plan of Care Planned Activity Planned Date Details Description Data Source (s) meloxicam 15 MG Oral Tablet KATHY ([facility]) Doxycycline Monohydrate 100 MG Oral Capsule KATHY ([facility]) Cefuroxime 500 MG Oral Tablet KATHY ([facility]) [facility] Amoxicillin 875 MG / Clavulanate 125 [facility] albuterol sulfate HFA 90 mcg/actuation aerosol inhaler KATHY ([facility])
--- NOTE | 2020-03-07 08:31 | REP ---
INDICATION: limited rom COMPARISON: None. TECHNIQUE: Internal rotation, external rotation, and Y view. FINDINGS: Cortical irregularity and spurring at the acromioclavicular joint is appreciated along with subtle blunting to the calcified glenoid rim and minimal spurring of the humeral head. No periarticular calcifications or loose bodies are identified. No acute fracture or dislocation. Subacromial space is normal. IMPRESSION: Mild arthritic degenerative changes. <Electronically signed by Aditya Paniagua > 03/07/20 [id number]
[2020-03-07] MEDS ORDERED: IBUPROFEN 800 MG TAB PO ONE (08:45)
[2020-03-07 08:55] VITALS: BP 138/87
== END 2020-03-07 08:57 | disposition home or self-care (01) ==
LOC: M ED 08:00
DX: S46.912A Strain of unspecified muscle, fascia and tendon at shoulder and upper arm level, left arm, initial encounter (principal); S43.402A Unspecified sprain of left shoulder joint, initial encounter; X50.0XXA Overexertion from strenuous movement or load, initial encounter; Y92.019 Unspecified place in single-family (private) house as the place of occurrence of the external cause; Y93.89 Activity, other specified; Y99.9 Unspecified external cause status; M19.012 Primary osteoarthritis, left shoulder; I10 Essential (primary) hypertension; E78.5 Hyperlipidemia, unspecified; K21.9 Gastro-esophageal reflux disease without esophagitis; F33.9 Major depressive disorder, recurrent, unspecified; F41.9 Anxiety disorder, unspecified; F17.200 Nicotine dependence, unspecified, uncomplicated; F12.10 Cannabis abuse, uncomplicated; Z79.899 Other long term (current) drug therapy

== ENCOUNTER 2020-05-16 05:36 | Emergency (ER) | payer OTHER ==
[~2020-05-16] VITALS: Ht 167.6 cm; Wt 79.0 kg
[2020-05-16 05:37] VITALS: BP 141/78
[2020-05-16] MEDS ORDERED: ACETAMINOPHEN 500 MG TAB PO ONE (07:55)
--- NOTE | 2020-05-16 08:03 | REP ---
INDICATION: metal plate fell onto foot COMPARISON: None. TECHNIQUE: AP, lateral, bilateral oblique views left foot. FINDINGS: The osseous structures and joint spaces are intact and normal. There is no evidence for acute fracture or dislocation. Surrounding soft tissues are unremarkable. No subcutaneous emphysema or radiodense foreign body. Incidental calcaneal heel spur noted. IMPRESSION: . No acute fracture or dislocation. <Electronically signed by Aditya Paniagua > 05/16/20 0755
== END 2020-05-16 08:16 | disposition home or self-care (01) ==
LOC: M ED 05:36
DX: M79.672 Pain in left foot (principal); R22.42 Localized swelling, mass and lump, left lower limb; W20.8XXA Other cause of strike by thrown, projected or falling object, initial encounter; Y92.9 Unspecified place or not applicable; Y93.9 Activity, unspecified; Y99.0 Civilian activity done for income or pay; I10 Essential (primary) hypertension; E78.5 Hyperlipidemia, unspecified; K21.9 Gastro-esophageal reflux disease without esophagitis; Z79.899 Other long term (current) drug therapy

== ENCOUNTER → 2020-11-22 | Outpatient (CLI) | payer OTHER ==
[~2020-11-22] MED LIST changes: +LIDOCAINE 1% MDV 20ML VIAL As Ordered ONE; +OMEP40CA4 PO; -OMEP40CA97 PO; +TRIAMCINOLONE ACETONIDE SUSP 40 MG/ML VIAL (J3301) As Ordered ONE
== END ==
LOC: M IRPRO 13:21
PROVIDERS: ATTEND Physician Assistant
DX: M75.42 Impingement syndrome of left shoulder (principal); Z53.8 Procedure and treatment not carried out for other reasons

== ENCOUNTER → 2021-05-15 | Outpatient (CLI) | payer OTHER ==
[~2021-05-15] MED LIST changes: +ISOVUE-300 61% 50ML VIAL As Ordered ONE; -OMEP-221; +OMEP40CA5
== END ==
LOC: M RADPRO 11:04
PROVIDERS: ATTEND Physician Assistant
DX: M75.42 Impingement syndrome of left shoulder (principal)
CPT/HCPCS: 20610; 77002; J3301; Q9967

== ENCOUNTER 2021-06-11 22:37 | Emergency (ER) | payer OTHER ==
[~2021-06-11] VITALS: Ht 170.2 cm; Wt 75.0 kg
[~2021-06-11 22:37] MED LIST changes: -ISOVUE-300 61% 50ML VIAL As Ordered ONE; -LIDOCAINE 1% MDV 20ML VIAL As Ordered ONE; -TRIAMCINOLONE ACETONIDE SUSP 40 MG/ML VIAL (J3301) As Ordered ONE
[2021-06-12 02:29] VITALS: BP 155/82
== END 2021-06-12 02:33 | disposition home or self-care (01) ==
LOC: M ED 22:37
DX: F43.0 Acute stress reaction (principal); F17.200 Nicotine dependence, unspecified, uncomplicated; F12.10 Cannabis abuse, uncomplicated; F10.10 Alcohol abuse, uncomplicated; Z63.0 Problems in relationship with spouse or partner

== ENCOUNTER → 2021-07-29 | Outpatient (CLI) | payer OTHER ==
[~2021-07-29] MED LIST changes: +LIDOCAINE 1% MDV 20ML VIAL As Ordered ONE; +TRIAMCINOLONE ACETONIDE SUSP 40 MG/ML VIAL (J3301) As Ordered ONE
== END ==
LOC: M IRPRO 14:46
PROVIDERS: ATTEND Physician Assistant
DX: M75.41 Impingement syndrome of right shoulder (principal)
CPT/HCPCS: 20610; J3301

== ENCOUNTER → 2022-01-14 | Outpatient (REF) | payer OTHER ==
[~2022-01-14] MED LIST changes: -DOXY-350 PO; +DOXY-444 PO; -LIDOCAINE 1% MDV 20ML VIAL As Ordered ONE; -TRIAMCINOLONE ACETONIDE SUSP 40 MG/ML VIAL (J3301) As Ordered ONE
== END ==
LOC: M LAB REF 22:01
PROVIDERS: ATTEND Physician Assistant
DX: B34.9 Viral infection, unspecified (principal)

== ENCOUNTER → 2022-03-30 | Outpatient (REF) | payer OTHER ==
[2022-03-30 17:40] LABS: THYROID STIMULATING HORMONE 0.866 uIU/ML (0.55-4.78)
[2022-03-30 17:41] LABS: TOTAL 25(OH) VITAMIN D 11.4 NG/ML (20.0-100.0)
[2022-03-30 17:43] LABS: ALKALINE PHOSPHATASE 67 U/L (46-116); ALT/SGPT 44 U/L (7.0-40); AST/SGOT 25 U/L (<34); BILIRUBIN,TOTAL 0.4 MG/DL (0.3-1.2); BLOOD UREA NITROGEN 17 MG/DL (9-23); CALCIUM LEVEL 9.2 MG/DL (8.5-10.1); CARBON DIOXIDE LEVEL 26 MMOL/L (20-31); CHLORIDE LEVEL 105 MMOL/L (98-107); CHOLESTEROL LEVEL 187 MG/DL (<200); CHOLESTEROL RISK RATIO 3.38 (<5); CREATININE FOR GFR 0.94 MG/DL (0.70-1.30); GLOMERULAR FILTRATION RATE > 60.0 (>60); GLUCOSE, FASTING 119 MG/DL (60-100); HDL CHOLESTEROL 55.3 MG/DL (>40); LDL CHOLESTEROL 101.3 MG/DL (<100); NON-HDL-C 132 MG/DL; POTASSIUM SERUM 4.1 MMOL/L (3.5-5.1); SODIUM LEVEL 137 MMOL/L (136-145); TOTAL PROTEIN 7.2 G/DL (5.7-8.2); TRIGLYCERIDES LEVEL 152 MG/DL (<150)
[2022-03-30 18:06] LABS: HEMOGLOBIN A1c 5.8 % (4.0-6.0)
[2022-03-30 19:19] LABS: BASO % 0.5 % (0.0-1.0); EOS # 0.1 10^3/uL (0.0-0.5); HEMATOCRIT 44.6 % (42.0-52.0); HEMOGLOBIN 15.1 g/dl (13.5-17.5); LYMPH # 2.6 10^3/uL (1.5-5.0); MEAN CORPUSCULAR HEMOGLOBIN 31.5 pg (27.0-33.0); MEAN CORPUSCULAR HGB CONC 33.9 g/dl (32.0-36.5); MEAN CORPUSCULAR VOLUME 93.1 fl (80.0-96.0); MONO # 0.4 10^3/uL (0.0-0.8); MONO % 6.2 % (2.0-8.0); NEUTROPHILS # 2.7 10^3/uL (1.5-8.5); NEUTROPHILS % 46.9 % (36.0-66.0); PLATELET COUNT, AUTOMATED 187 10^3/uL (150-450); RED BLOOD COUNT 4.79 10^6/uL (4.30-6.10); WHITE BLOOD COUNT 5.8 10^3/uL (4.0-10.0)
== END ==
LOC: M LAB REF 16:23
PROVIDERS: ATTEND Nurse Practitioner Family
DX: Z13.228 Encounter for screening for other metabolic disorders (principal)

== ENCOUNTER → 2022-07-01 | Outpatient (CLI) | payer OTHER ==
[~2022-07-01] MED LIST changes: +LIDOCAINE 1% MDV 20ML VIAL As Ordered ONE; +TRIAMCINOLONE ACETONIDE SUSP 40MG/ML 1ML VIAL As Ordered ONE
== END ==
LOC: M IRPRO 08:59
PROVIDERS: ATTEND Physician Assistant
DX: M75.41 Impingement syndrome of right shoulder (principal)
CPT/HCPCS: 20610; J3301

== ENCOUNTER → 2023-02-22 | Outpatient (CLI) | payer OTHER | LOC: M IRPRO 11:09 | PROVIDERS: ATTEND Physician Assistant | DX: M75.42 Impingement syndrome of left shoulder (principal) | CPT/HCPCS: 20550; 76942; J3301 ==

== ENCOUNTER → 2023-11-23 | Outpatient (REF) | payer OTHER ==
[~2023-11-23] MED LIST changes: +DOXY-440 PO; -DOXY-444 PO; -LIDOCAINE 1% MDV 20ML VIAL As Ordered ONE; -TRIAMCINOLONE ACETONIDE SUSP 40MG/ML 1ML VIAL As Ordered ONE
[2023-11-23 14:39] LABS: BASO % 0.4 % (0.0-1.0); EOS % 0.4 % (0.0-3.0); HEMOGLOBIN 14.9 g/dl (13.5-17.5); LYMPH # 1.4 10^3/uL (1.5-5.0); LYMPH % 26.8 % (24.0-44.0); MEAN CORPUSCULAR HEMOGLOBIN 32.3 pg (27.0-33.0); MEAN CORPUSCULAR HGB CONC 33.9 g/dl (32.0-36.5); MEAN CORPUSCULAR VOLUME 95.4 fl (80.0-96.0); MONO # 0.3 10^3/uL (0.0-0.8); MONO % 6.3 % (2.0-8.0); NEUTROPHILS # 3.5 10^3/uL (1.5-8.5); NEUTROPHILS % 65.9 % (36.0-66.0); PLATELET COUNT, AUTOMATED 222 10^3/uL (150-450); RED BLOOD COUNT 4.61 10^6/uL (4.30-6.10); WHITE BLOOD COUNT 5.4 10^3/uL (4.0-10.0)
[2023-11-23 14:47] LABS: HEMOGLOBIN A1c 5.4 % (4.0-6.0)
[2023-11-23 15:08] LABS: THYROID STIMULATING HORMONE 0.867 uIU/ML (0.55-4.78); TOTAL 25(OH) VITAMIN D 25.9 NG/ML (20.0-100.0)
[2023-11-23 15:13] LABS: ALBUMIN 4.5 G/DL (3.2-5.2); ALKALINE PHOSPHATASE 93 U/L (46-116); ALT/SGPT 59 U/L (7.0-40); AST/SGOT 57 U/L (<34); BILIRUBIN,TOTAL 0.5 MG/DL (0.3-1.2); BLOOD UREA NITROGEN 19 MG/DL (9-23); CALCIUM LEVEL 9.9 MG/DL (8.5-10.1); CARBON DIOXIDE LEVEL 27 MMOL/L (20-31); CHLORIDE LEVEL 105 MMOL/L (98-107); CHOLESTEROL LEVEL 205 MG/DL (<200); CHOLESTEROL RISK RATIO 2.56 (<5); CREATININE FOR GFR 0.87 MG/DL (0.70-1.30); GLOMERULAR FILTRATION RATE > 60.0 (>56); GLUCOSE, FASTING 86 MG/DL (60-100); LDL CHOLESTEROL 111.6 MG/DL (<100); MAGNESIUM LEVEL 1.9 MG/DL (1.8-2.4); POTASSIUM SERUM 3.8 MMOL/L (3.5-5.1); SODIUM LEVEL 141 MMOL/L (136-145); TOTAL PROTEIN 8.1 G/DL (5.7-8.2); TRIGLYCERIDES LEVEL 67 MG/DL (<150)
== END ==
LOC: M LAB REF 12:37
PROVIDERS: ATTEND Nurse Practitioner Family
DX: E55.9 Vitamin D deficiency, unspecified (principal); E66.3 Overweight

== ENCOUNTER → 2024-05-30 | Outpatient (REF) | payer OTHER ==
[2024-05-30 19:10] LABS: ALBUMIN 4.3 G/DL (3.2-5.2); ALKALINE PHOSPHATASE 66 U/L (40-129); ALT/SGPT 44 U/L (7.0-40); AST/SGOT 48 U/L (<34); BILIRUBIN,TOTAL 0.4 MG/DL (0.3-1.2); BLOOD UREA NITROGEN 17 MG/DL (9-23); CALCIUM LEVEL 9.7 MG/DL (8.5-10.1); CARBON DIOXIDE LEVEL 27 MMOL/L (20-31); CHLORIDE LEVEL 102 MMOL/L (98-107); CHOLESTEROL LEVEL 214 MG/DL (<200); CHOLESTEROL RISK RATIO 2.57 (<5); CREATININE FOR GFR 0.79 MG/DL (0.70-1.30); GLOMERULAR FILTRATION RATE > 90.0 (>56); GLUCOSE, FASTING 84 MG/DL (60-100); LDL CHOLESTEROL 100.8 MG/DL (<100); POTASSIUM SERUM 3.9 MMOL/L (3.5-5.1); SODIUM LEVEL 142 MMOL/L (136-145); TOTAL PROTEIN 7.7 G/DL (5.7-8.2); TRIGLYCERIDES LEVEL 151 MG/DL (<150)
[2024-05-30 19:12] LABS: THYROID STIMULATING HORMONE 1.627 uIU/ML (0.55-4.78)
== END ==
LOC: M LAB REF 18:03
PROVIDERS: ATTEND Nurse Practitioner Family
DX: F32.A Depression, unspecified (principal); E78.5 Hyperlipidemia, unspecified